=== PATIENT | male | born 1935 | race Caucasian/White ===

== ENCOUNTER → 2020-10-25 13:25 | Outpatient (CLI) | payer OTHER, SELFPAY ==
[2020-10-25 15:27] LABS: Prostate Specific Antigen < 0.064 ng/mL (0.10-4.00)
== END ==
PROVIDERS: PCP Internal Medicine; Referring Provider Specialist; Visit Provider Specialist
DX: N40.0 Benign prostatic hyperplasia without lower urinary tract symptoms (principal); N39.0 Urinary tract infection, site not specified; R33.9 Retention of urine, unspecified; Z85.46 Personal history of malignant neoplasm of prostate
CPT/HCPCS: 36415; 81002; 84153; 87077; 87086; 87186; 99213